=== PATIENT | female | born 1995 | race Caucasian/White ===

== ENCOUNTER 2022-10-12 15:22 | Outpatient (CLI) | payer BC, SELFPAY ==
[2022-10-12 21:41] LABS: Chlamydia DNA Amplified* NOT DETECTED (No Detected); GC DNA Amplified* NOT DETECTED (No Detected)
== END 2022-10-12 15:23 | disposition home or self-care (01) ==
PROVIDERS: PCP Family Medicine; Visit Provider Obstetrics & Gynecology
DX: N93.0 Postcoital and contact bleeding (principal); N91.1 Secondary amenorrhea; Z11.3 Encounter for screening for infections with a predominantly sexual mode of transmission; Z12.4 Encounter for screening for malignant neoplasm of cervix
CPT/HCPCS: 83001; 83498; 84146; 84270; 84402; 84403; 84443; 87491; 87591

== ENCOUNTER 2022-10-17 15:43 | Outpatient (CLI) | payer BC, SELFPAY ==
--- NOTE | 2022-10-17 16:00 | CRLHL7_ITS ---
For Patients: As a result of the Century Cures Act, medical imaging exams and procedure reports are released immediately into your electronic medical record. You may view this report before your referring provider. If you have questions, please contact your health care provider. INDICATION: POST COITAL BLEEDING COMPARISON: none TECHNIQUE: 2D hardy scale and color Doppler images were acquired of the pelvis using a transabdominal and transvaginal approach. FINDINGS: Sonographic images demonstrate a normal size and smooth outer contour of the uterus. Uterus measures 6.4 cm in length by 2.7 cm in AP diameter by 4.8 cm in transverse dimension. The myometrium has a normal uniform echotexture. The endometrial lining measures 5 mm in composite thickness. The endometrium is heterogeneous with small cystic areas. The right ovary measures 3.9 x 2.3 x 2.3 cm in size and the left ovary measures 3.8 x 1.7 x 2.2 cm. The ovaries demonstrate normal arterial and venous blood flow on color Doppler analysis. There are no suspicious fluid collections within the cul-de-sac. Multiple normal ovarian follicles are present bilaterally. IMPRESSION: Mild heterogeneity of the endometrium which measures 5 millimeters along with small cystic areas suggesting adenomyosis. Dictated by Enrico Hurt MD @ 10/18/2022 10:45:16 AM (Electronically Signed)
== END 2022-10-17 15:44 | disposition home or self-care (01) ==
LOC: US 15:43
PROVIDERS: PCP Family Medicine; Visit Provider Obstetrics & Gynecology
DX: N93.0 Postcoital and contact bleeding (principal); R93.89 Abnormal findings on diagnostic imaging of other specified body structures
CPT/HCPCS: 76830; 76856

== ENCOUNTER 2022-12-14 06:40 | Outpatient (CLI) | payer BC, SELFPAY ==
[2022-12-18 11:32] LABS: Progesterone, HPLC-MS/MS 0.64 ng/mL
== END 2022-12-14 06:41 | disposition home or self-care (01) ==
LOC: LAB 06:45
PROVIDERS: PCP Family Medicine; Visit Provider Obstetrics & Gynecology
DX: N91.1 Secondary amenorrhea
CPT/HCPCS: 36415; 80061; 82947; 84144

== ENCOUNTER 2023-01-07 20:36 | Outpatient (CLI) | payer SELFPAY ==
[2023-01-11 08:37] LABS: Progesterone, HPLC-MS/MS 0.15 ng/mL
== END 2023-01-07 20:37 | disposition home or self-care (01) ==
LOC: LAB 20:37
PROVIDERS: PCP Family Medicine; Visit Provider Obstetrics & Gynecology
DX: N97.0 Female infertility associated with anovulation (principal)
CPT/HCPCS: 36415; 84144

== ENCOUNTER 2023-02-27 08:10 | Outpatient (CLI) | payer SELFPAY | END 2023-02-27 08:11 | disposition home or self-care (01) | LOC: NFLDREF 03-06 08:07 | PROVIDERS: PCP Family Medicine; Referring Provider Family Medicine; Visit Provider Obstetrics & Gynecology | DX: N97.0 Female infertility associated with anovulation (principal) | CPT/HCPCS: 84144 ==

== ENCOUNTER 2023-06-21 13:39 | Outpatient (CLI) | payer BC, SELFPAY ==
--- NOTE | 2023-06-21 14:00 | CRLHL7_ITS ---
For Patients: As a result of the Cures Act, medical imaging exams and procedure reports are released immediately into your electronic medical record. You may view this report before your referring provider. If you have questions, please contact your health care provider. INDICATION: First trimester scan, establish dates. COMPARISON: None. TECHNIQUE: Real-time hardy-scale imaging of the pelvis was performed. FINDINGS: Sonographic imaging demonstrates a single living intrauterine gestation. The embryo demonstrates a regular cardiac rate measuring 152 beats per minute. The embryo`s crown-rump length measurement of 2.2 cm corresponds to a gestational age of 8 weeks 6 days with a sonographic due date of 01/25/2024. There is a normal-appearing yolk sac. There are no gross abnormalities noted within the embryo at this early state of development. The gestational sac has a normal appearance. There is no evidence of a perigestational hemorrhage. The amount of fluid within the sac appears appropriate for gestational age. The cervix is closed. The myometrium appears normal. The ovaries are of normal size. Corpus luteal cyst left ovary. There are no suspicious fluid collections noted in the cul-de-sac. IMPRESSION: Normal first trimester OB ultrasound exam. Gestational age calculated at 8 weeks 6 days with a sonographic due date of 01/25/2024. Dictated by Enrico Hurt MD @ 06/21/2023 2:39:18 PM (Electronically Signed)
== END 2023-06-21 13:40 | disposition home or self-care (01) ==
LOC: US 13:40
PROVIDERS: PCP Family Medicine; Visit Provider Advanced Practice Midwife
DX: Z34.91 Encounter for supervision of normal pregnancy, unspecified, first trimester (principal); Z3A.09 9 weeks gestation of pregnancy
CPT/HCPCS: 76817; 86592; 86703; 86704; 86706; 86762; 86787; 86803; 86850; 86900; 86901; 87086; 87340

== ENCOUNTER 2023-09-11 12:39 | Outpatient (CLI) | payer BC, SELFPAY ==
--- NOTE | 2023-09-11 13:00 | US_ITS ---
Patient: PATRICIA OBANDO Facility:?[facility] Patient ID:?[id number] Site Patient ID:?[id number]. Site :?[id number] Study:?US-OB Pelvis anatomy-09/11/2023 2:08:05 PM Ordering Physician:KYM Final Report: INDICATION: anatomy screen. Comparison: None. Technique: Transabdominal OB ultrasound; anatomic survey. Findings: Single viable intrauterine gestation of 21 weeks and 3 days duration with an expected date of delivery 01/19/2024. heart rate 154 beats per minute and regular. Estimated weight 392 g at 69th percentile. Placenta is posterior with accessory lobe anteriorly. No previa. The length of the uterine cervix 4.2 cm. position is vertex. The umbilical artery SD ratio 3.8. BPD 5.25 cm, head circumference 20.28 cm, abdominal circumference 15.45 cm, femur length 3.49 cm, cisterna magna 0.55 cm and lateral ventricle 0.52 cm. The largest amniotic fluid pocket measures 3.8 cm in depth. anatomy screen is normal. IMPRESSION: 1. Single viable intrauterine gestation of 21 weeks and 3 days duration with an expected date of delivery 01/19/2024. 2. heart rate 154 beats per minute and regular. 3. The estimated weight 392 g at 69th percentile. 4. Normal anatomy screen. Dictated by Kelechi Lama MD @ 09/12/2023 8:33:54 AM Signed by:?Kelechi Lama MD @09/12/2023 8:33:54 AM (Electronic Signature)
== END 2023-09-11 12:40 | disposition home or self-care (01) ==
PROVIDERS: PCP Family Medicine; Visit Provider Advanced Practice Midwife
DX: Z34.92 Encounter for supervision of normal pregnancy, unspecified, second trimester (principal); Z3A.21 21 weeks gestation of pregnancy
CPT/HCPCS: 76805

== ENCOUNTER 2023-11-05 08:45 | Outpatient (CLI) | payer BC, SELFPAY | END 2023-11-05 08:46 | disposition home or self-care (01) | LOC: NFLDREF 11-23 21:46 | PROVIDERS: PCP Family Medicine; Referring Provider Family Medicine; Visit Provider Advanced Practice Midwife | DX: Z34.93 Encounter for supervision of normal pregnancy, unspecified, third trimester (principal); Z3A.28 28 weeks gestation of pregnancy | CPT/HCPCS: 86592 ==

== ENCOUNTER 2023-11-20 13:53 | Outpatient (CLI) | payer BC, SELFPAY ==
--- NOTE | 2023-11-20 14:00 | CRLHL7_ITS ---
For Patients: As a result of the Century Cures Act, medical imaging exams and procedure reports are released immediately into your electronic medical record. You may view this report before your referring provider. If you have questions, please contact your health care provider. INDICATION: Third trimester scan, evaluate growth. COMPARISON: 09/11/2023 TECHNIQUE: Real time hardy scale imaging of the fetus was performed. FINDINGS: Sonographic imaging demonstrates a single living intrauterine gestation. Fetus demonstrates a regular cardiac rate of 125 beats per minute. Fetus has a vertex position. The placenta lies posterior with an accessory placenta anteriorly. Amniotic fluid volume appears normal and there is a single deepest vertical pocket: 6.0 cm. The estimated weight is 1811gm which lies at the 75th %. On the prior OB ultrasound exam dated 09/11/2023 the estimated weight was at the 69th%. BPD 94th percentile. HC< 97th percentile. AC is 70th percentile. FL 40th percentile. The HC/AC ratio measures 1.15 range (0.96-1.12). IMPRESSION: Sonographic gestational age 32 weeks 4 days and sonographic due date 01/11/2024. Sonographic age 2 weeks ahead of the clinical age. Estimated weight 75th percentile. Abdominal circumference 70th percentile. HC< 97th percentile. Accessory anterior placenta. Dictated by Enrico Hurt MD @ 11/21/2023 2:09:49 PM (Electronically Signed)
== END 2023-11-20 13:54 | disposition home or self-care (01) ==
LOC: US 13:54
PROVIDERS: PCP Family Medicine; Visit Provider Registered Nurse
DX: Z34.93 Encounter for supervision of normal pregnancy, unspecified, third trimester (principal); Z3A.32 32 weeks gestation of pregnancy
CPT/HCPCS: 76816

== ENCOUNTER 2023-12-30 09:26 | Outpatient (CLI) | payer BC, SELFPAY | END 2023-12-30 09:27 | disposition home or self-care (01) | LOC: NFLDREF 12-31 15:36 | PROVIDERS: PCP Family Medicine; Referring Provider Family Medicine; Visit Provider Advanced Practice Midwife | DX: Z34.93 Encounter for supervision of normal pregnancy, unspecified, third trimester (principal); Z3A.36 36 weeks gestation of pregnancy | CPT/HCPCS: 87081; 87653 ==

== ENCOUNTER 2024-01-13 18:30 | Inpatient (IN) | payer BC, SELFPAY ==
[2024-01-13] VITALS (7 sets, daily range): BP systolic 111–121; BP diastolic 68–71; PULSE 71–72; RESP 16; TEMP 36.7–36.9; O2SAT 97; BMI 33.1
--- NOTE | 2024-01-13 20:04 | P.LDBA_ITS ---
Subjective History of Present Illness Date Seen: 01/13/24 Narrative: Ivonne is being admitted to Labor and Delivery for SROM this morning around 0700. She is a 28 year old at 38.2 weeks gestation. Her full history and physical was dictated by Fransisco Nazario CNM on 01/06/24. Please see this for details. She has started to feel more regular tightening starting this evening around 1630, at this time she would like to wait and see if her body will continue to progress with cr. Discussed considering IV Pitocin if in 4 hours she is not continuing to contract regularly with increasing intensity. She would like to defer a cervical exam at this time until later. 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 ADD Was on Adderall prior to , not currently using 2. Hx of Laminectomy L5-S1 Anesthesia referral placed: Completed - 11/19 w/ Karlene: Asked about primary C/S rather than epidural if needed intrapartum, her concern is masking her pinched nerve with epidural where she may have pain/numbness/weakness after it wears off. Discussed risks of C/S, where it could be considered by maternal request but is NOT medically recommended. 3. Possible progesterone for menses initiation completed in very early 4. Accessory anterior lobe Consider growth US 28-32 weeks pending final report-no recommendation for follow up US on final report. [x] growth on 11/19 by tech report is 75%ile. Posterior placenta with anterior accessory lobe, no placenta near cervix - on pictures appears fundal. COVID: first series, not booster, declines booster today Flu: 04/05/2023 OB - Problem Based A/P Additional Plan (1) SROM (spontaneous rupture of membranes): Status: Acute (2) 38 weeks gestation of : Status: Acute Plan Assessment:?? at 38.2 weeks gestation?? GBS negative? Patient is coping well with challenges of labor.?? Labor type: Spontaneous, Early labor? Category 1 FHR pattern.? complicated by: 1. ADD Was on Adderall prior to , not currently using 2. Hx of Laminectomy L5-S1 Anesthesia referral placed: Completed - 11/19 w/ Karlene: Asked about primary C/S rather than epidural if needed intrapartum, her concern is masking her pinched nerve with epidural where she may have pain/numbness/weakness after it wears off. Discussed risks of C/S, where it could be considered by maternal request but is NOT medically recommended. 3. Possible progesterone for menses initiation completed in very early 4. Accessory anterior lobe Consider growth US 28-32 weeks pending final report-no recommendation for follow up US on final report. [x] growth on 11/19 by tech report is 75%ile. Posterior placenta with anterior accessory lobe, no placenta near cervix - on pictures appears fundal. Plan:?? * ?Admit to L & D? * IV access: NA * Monitoring per policy: intermittent? * Candidate for analgesia of choice.? Planning unmedicated waterbirth for pain management * Desires waterbirth.? Consent signed and Hep C negative * Expectant management at this time ? * Patient encouraged to reposition and ambulate to promote physiologic labor and . * Anticipate * Reevaluate in approximately 4 hours, consider augmentation at that time if not continuing to progress in labor? Delivery/Labor/Induction Plan Plan: expectant management OB Exam Physical Exam Vital signs: Temp Pulse Resp BP Pulse Ox 98.4 F 72 16 121/71 97 01/13/24 19:30 01/13/24 18:28 01/13/24 18:30 01/13/24 18:28 01/13/24 18:28 Narrative: Vitals Reviewed Constitutional:? Alert and oriented x3 HEENT:? Normocephalic, atraumatic Neck:? Supple Lungs:? Clear to auscultation bilaterally Heart:? Regular rate and rhythm, no murmur, rub or gallop Abdomen:? Soft, nontender, and gravid. Vertex by Edgardo's, confirmed with cervical exam. Extremities:? No edema or erythema Cervix: deferred at this time, vertex confirmed by bedside US NST: 125 bpm/moderate variability/+accelerations/-decelerations/mild contractions every 8-10 minutes on admission now reporting contractions are closer together but has not been timing them Detailed Labor and Delivery Exam Patient Gravid: Yes
[2024-01-13] MEDS: CALCIUM CARBONATE 500 MG CHEW PO (20:10)
[2024-01-14] VITALS (62 sets, daily range): BP systolic 100–143; BP diastolic 49–86; PULSE 65–145; RESP 16; TEMP 36.4–37; O2SAT 90–100
[2024-01-14] MEDS: miSOPROStoL 25 MCG/0.25 TABLET PO ×3 (00:16→08:23)
--- NOTE | 2024-01-14 00:30 | PM.OBPNL ---
Subjective Date Seen: 01/14/24 Narrative: ?Ivonne is sleeping though her contractions at this time. ?Chay is with her for support. ?Decision made to do cervical exam, done with consent. She is 1/thick/-3. Since admission she is contraction more regularly but they have not increased in intensity. Reviewed options of waiting longer or adding augmentation of either Pitocin or Cytotec at this time. She is agreeable to Cytotec orally. Encouraged to sleep as able overnight and offered medications for sleep if needed. She declines at this time. Objective Exam: VSS, afebrile General Appearance:? Calm, cooperative. ?No acute distress. ? Psychiatric Exam: Alert and oriented, appropriate affect Abdomen: Gravid Ctx: ?Q 2-5 min apart. ?Mild ? ? FHTs: ?Baseline: 125. ? ? Variability: moderate. ?Accels: +. ? ?Decels: ?-. SVE: 1/thick/-3 Membranes: ?SROM since 0700 Vital Signs: Last Vital Signs Temp 98.0 F 01/13/24 23:30 Pulse 83 01/14/24 00:20 Resp 16 01/13/24 18:30 BP 130/72 01/14/24 00:20 Pulse Ox 96 01/14/24 00:20 Plan Plan: Assessment:?? at 38.3 gestation?? GBS neg Patient is not in labor at this time.? Labor type: Augmentation , Early labor? Category 1 FHR pattern.? complicated by: ADD Hx of Laminectomy L5-S1 Anesthesia referral placed: Completed - 11/19 w/ Karlene: Asked about primary C/S rather than epidural if needed intrapartum, her concern is masking her pinched nerve with epidural where she may have pain/numbness/weakness after it wears off. Discussed risks of C/S, where it could be considered by maternal request but is NOT medically recommended. Possible progesterone for menses initiation completed in very early Accessory anterior lobe Consider growth US 28-32 weeks pending final report-no recommendation for follow up US on final report. [x] growth on 11/19 by tech report is 75%ile. Posterior placenta with anterior accessory lobe, no placenta near cervix - on pictures appears fundal. Labor complicated by: PROM Plan:?? Cytotec orally per protocol for augmentation. Limit vaginal exams Continue with routine intrapartum cares as ordered.?? Patient encouraged to move and change positions to promote physiologic labor and .?? Nonpharmacologic comfort measures per patient preference. Candidate for analgesia of choice if desired. Patient planning waterbirth Anticipate progress to NVD. ?
--- NOTE | 2024-01-14 07:31 | PM.OBPNL ---
Subjective Date Seen: 01/14/24 Narrative: Ivonne was able to sleep over night. She is feeling contractions as tightening but denies pain with them and was able to sleep through them. She is continuing to occasionally leak a small amount of clear fluid. VSS. We discussed limiting SVE to prevent infection and she is agreeable to this plan. Deferred exam at this time as she is not feeling painful contractions, she denies pressure, and it would not be likely to change our plan at this time. Discussed additional doses of Cytotec vs switching to Pitocin titration. She would like to proceed with 1-2 more doses of oral Cytotec before considering Pitocin. She is due for her next dose at 0815 so will plan to reevaluate around [id number] to decided on additional Cytotec doses vs Pitocin. She denies questions or concerns at this time. Objective Vital Signs: Last Vital Signs Temp 97.9 F 01/14/24 06:23 Pulse 68 01/14/24 04:05 Resp 16 01/13/24 18:30 BP 115/80 01/14/24 04:05 Pulse Ox 98 01/14/24 04:06 Contractions Monitor mode: External Contraction Frequency: On [place]. 1-3 with likely irritability, not feeling all that are tracing. Contraction pattern: Irregular Contraction intensity: Mild (per palpation by RN) Assessment Assessment: early labor Amniotic Membrane Status: SROM Status: Category l Heart Rate Baseline: 125 Automotive Vehicle Inspector Variability: Moderate (6-25) Monitor Accelerations: Present Monitor Decelerations: None Plan Plan: Assessment:?? at 38.3 gestation?? GBS neg Patient is not in labor at this time.? Labor type: Augmentation , Early labor?after SROM Category 1 FHR pattern.? complicated by: ADD, hx of Laminectomy L5-S1, accessory anterior lobe Labor complicated by: PROM Plan:?? Reviewed risks and benefits of augmentation with Pitocin vs Cytotec. Pt prefers to continue with Cytotec. Consider Pitocin after an additional 1-2 doses of Cytotec.? Limit vaginal exams Continue with routine intrapartum cares as ordered.?? Desires water . Consent signed. Hep C negative.? Candidate for analgesia of choice. Planning unmedicated . Nonpharmacologic comfort measures per patient preference.? Patient encouraged to move and change positions to promote physiologic labor and .?? Anticipate progress to NVD. Continuous monitoring per Cytotec policy
[2024-01-14 11:41] LABS: Basophils Absolute Auto 0.03 K/uL (0.00-0.30); Basophils Percent Auto 0.4 % (0.0-3.0); Eosinophils Absolute Auto 0.08 K/uL (0.00-0.50); Hematocrit 39.2 % (33.0-51.0); Hemoglobin* 12.9 gm/dL (12.0-16.0); Immature Granulocytes Abs Auto 0.05 K/uL (0.00-0.30); Immature Granulocytes Pct Auto 0.6 %; Lymphocytes Percent Auto 25.7 % (20-44); Mean Corpuscular HGB Conc 33 gm/dL (32-36); Mean Corpuscular Hemoglobin 31 pg (26-34); Mean Corpuscular Volume 93 fL (80-100); Monocytes Percent Auto 9.3 % (0.0-11.0); Neutrophils Absolute Auto 4.89 K/uL (1.7-7.0); Platelet Count* 182 K/uL (140-440); RDW Coefficient of Variation % 12.7 % (11.5-15.5); Red Blood Count 4.23 m/uL (4.00-5.20); White Blood Count* 7.77 K/uL (4.50-11.00)
[2024-01-14 11:44] LABS: Slide Review Reflex No
[2024-01-14] MEDS: OXYTOCIN 30 unit/500 ML in NS 30 UNIT/500 ML BAG IVPB (12:19)
[2024-01-14] MEDS: LACTATED RINGERS 1000 ML 1,000 ML 125 ML IV (19:56)
--- NOTE | 2024-01-14 21:20 | PM.OBPNL ---
Subjective Time Seen by Provider: 11:30 Date Seen: 01/14/24 Narrative: Ivonne is about 3 hours past her third dose of oral Cytotec. She is starting to feel cramping but mild and they palpate mild. We discussed options of continuing with Cytotec or switching to Pitocin titration. Risks and benefits of each were discussed. Offered a SVE but she declines at this time as she is only just started feeling cramping and it would be unlikely to change her options or influence her decision. She would like to switch to Pitocin titration. Objective Vital Signs: Last Vital Signs Temp 98.4 F 01/14/24 19:20 Pulse 67 01/14/24 20:25 Resp 16 01/14/24 18:13 BP 132/69 01/14/24 20:25 Pulse Ox 98 01/14/24 04:06 Contractions Monitor mode: External Contraction Frequency: 2-6 min Contraction pattern: Irregular Contraction intensity: Mild (per palpation by RN) Assessment Assessment: induction ongoing Amniotic Membrane Status: SROM Status: Category l Heart Rate Baseline: 120 Mechanical Handyman Variability: Moderate (6-25) Monitor Accelerations: Present Monitor Decelerations: Variable (one variable noted. did not repeat.) Plan Plan: Assessment:?? at 38.3 gestation?? GBS neg Labor type: Augmentation , Early labor?after SROM Category 1 FHR pattern.? complicated by: ADD, hx of Laminectomy L5-S1, accessory anterior lobe Labor complicated by: PROM Plan:?? Reviewed risks and benefits of continuing augmentation with Cytotec vs switching to Pitocin titration. Pt prefers to switch to Pitocin titration.? Limit vaginal exams Continue with routine intrapartum cares as ordered.?? Desires water . Consent signed. Hep C negative.? Candidate for analgesia of choice. Planning unmedicated . Nonpharmacologic comfort measures per patient preference.? Patient encouraged to move and change positions to promote physiologic labor and .?? Anticipate progress to NVD. Continuous monitoring per Pitocin policy
--- NOTE | 2024-01-14 21:29 | PM.OBPNL ---
Subjective Time Seen by Provider: 21:00 Date Seen: 01/14/24 Narrative: Ivonne has continued with Pitocin titration and was up to 14 mU/min. At my arrival she was cr every 1.5 minutes for the past 15-20 minutes so it was decreased to 7 mU/min. If contractions do not decrease in frequency will consider decreasing further. She stared having painful contractions around 1930 and the have increased in intensity. Requested a SVE after my arrival and was found to be 4-5/90%/-1. Encouraged her to continue with position changes. Discussed considering hydrotherapy or nitrous for comfort. Shortly after the SVE she requested an epidural. A SVE was again offered and she was found to 6cm but exam was difficult as she was in the bathroom bathtub. She would like to proceed with epidural placement. Objective Vital Signs: Last Vital Signs Temp 98.4 F 01/14/24 19:20 Pulse 67 01/14/24 20:25 Resp 16 01/14/24 18:13 BP 132/69 01/14/24 20:25 Pulse Ox 98 01/14/24 04:06 Pelvic Exam Dilation (cm): 6 Effacement (%): 90 Station: -1 Contractions Monitor mode: External Contraction Frequency: 2-2.5 min Contraction pattern: Irregular Contraction intensity: Mild (per palpation by RN) Pitocin Rate (mU/min): 7 Assessment Assessment: active labor Station: -1 Amniotic Membrane Status: SROM Status: Category l Heart Rate Baseline: 125 Monitor Accelerations: Present Monitor Decelerations: Variable (one variable noted. did not repeat.) Plan Plan: Assessment:?? at 38.3 gestation?? GBS neg Labor type: Augmentation , active labor?after SROM Category 1 FHR pattern.? complicated by: ADD, hx of Laminectomy L5-S1, accessory anterior lobe Labor complicated by: PROM Plan:?? Continue Pitocin titration per policy Limit vaginal exams Continue with routine cares.?? Candidate for analgesia of choice. Desires epidural placement at this time. Encouraged and assist with positions changes to promote physiologic labor and after epidural placement.?? Anticipate progress to NVD. Continuous monitoring per policy
[2024-01-14] MEDS: ONDANSETRON 2 MG/ML inj 4 MG IV (21:45)
[2024-01-14] MEDS: fentaNYL 250 MCG/5 ML inj 100 MCG EPIDURAL ×2 (21:55→22:55)
[2024-01-14] MEDS: ROPIVACAINE 0.2% 100 ml 100 ML 12 MG EPIDURAL (22:01)
[2024-01-14] MEDS: LIDOCAINE 2% (PF) 5 ML VIAL EPIDURAL (22:01)
--- NOTE | 2024-01-14 22:17 | P.ANBPRC_ITS ---
PFSH PFS Medical History (Updated 01/13/24 @ 20:13 by Juan Galarza CNM) Infertility associated with anovulation ?N97.0 - Female infertility associated with anovulation (ICD-10) Surgical History Status post lumbar laminectomy (04/2012) ?Z98.890 - Other specified postprocedural states (ICD-10) Family History (Updated 06/21/23 @ 15:00 by Ivonne Grajeda CNM) Paternal Grandfather Coronary artery disease Diabetes Mother High blood pressure Father High cholesterol Aunt Ovarian cancer Endometrial cancer Social History (Updated 06/22/23 @ 18:03 by Ivonne Grajeda CNM) Narrative: SOCIAL Education: Doctorate Work: [employer] 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 Partner present Special Diet: Denies Ok with a blood transfusion: yes Culture or presybeterian beliefs: denies RISK FACTORS Exercise Times/wk: Not routinely Hx of Depression and/or Anxiety/other mood disorder: No Seat Belt Use: Routinely Smoking: Denies past/present Alcohol/day: Denies while , Less than 1x per day/few per week Caffeine: 1 cup per day Drug Use: Denies past/present Chicken Pox: vaccinated, twice MRSA: Denies What is your current living situation?: I presently have a place to live Problems where you live: no known problems In the past 12 months, utilities in danger of being shut off: no In past 12 months, lack of transportation kept you from medical appts, meetings, work, or getting things needed for daily living: no How hard is it for you to pay for the very basics like food, housing, medical care, and heating: not very hard In the past 12 mos, have been you worried that your food would run out before you had money to buy more?: never true In the past 12 mos, the food you bought just didn't last and you didn't have money to buy more?: never true Smoking Status: Never smoker How often does anyone, including family, friends and others, physically hurt you : never How often does anyone, including family, friends and others, insult or talk down to you: never How often does anyone, including family, friends and others, threaten you with harm: never How often does anyone, including family, friends and others, scream or curse at you: never Little interest or pleasure in doing things: not at all Feeling down, depressed, or hopeless: not at all Meds Home Medications and Allergies Home Medications ?Medication ?Instructions ?Recorded ?Confirmed ?Type omega-3s 800 mg-dha 186.67 mg-epa 1 cap PO DAILY 10/12/22 01/13/24 History 560 mg-fish-vit D3 8.33 mcg capsule (De3 [facility] [place] Benefits) prenat.vits,kristopher,hbd-zmtg-kzcxx 1 tab PO QDAY 10/12/22 01/13/24 History famotidine 10 mg tablet (Acid 10 mg feeding tube QHS 01/13/24 01/13/24 History Controller) Allergies Allergy/AdvReac Type Severity Reaction Status Date / Time No Known Allergies Allergy Unknown Verified 01/13/24 18:44 Results Labs Labs: Laboratory Results - last 24 hr 01/14/24 11:30 WBC 7.77 RBC 4.23 Hgb 12.9 Hct 39.2 MCV 93 MCH 31 MCHC 33 RDW Coeff of Anjali 12.7 Plt Count 182 Neut % (Auto) 63.0 Lymph % (Auto) 25.7 [place]idan % (Auto) 9.3 Eos % (Auto) 1.0 Baso % (Auto) 0.4 Neut # (Auto) 4.89 Lymph # (Auto) 2.00 [place]idan # (Auto) 0.70 Eos # (Auto) 0.08 Baso # (Auto) 0.03 Abs Immat Gran (auto) 0.05 Imm/Tot Granulo (auto) 0.6 Blood Type O Positive Antibody Screen NEGATIVE Vital Signs Vital Signs: Last Vital Signs Temp 98.4 F 01/14/24 19:20 Pulse 70 01/14/24 22:17 Resp 16 01/14/24 18:13 BP 142/83 H 01/14/24 22:17 Pulse Ox 100 01/14/24 22:12 Weight: 93.1 kg Height: 167.64 cm Anesthesia Procedures Epidural Insertion Patient Location: OB Start Time: 21:15 Stop Time: 22:15 Start Date: 01/14/24 Stop Date: 01/14/24 Reason for Block: primary anesthetic Patient Position: sitting Performed By: Salomón Baird Preanesthetic Checklist: IV checked, risks and benefits discussed, surgical consent, monitors and equipment checked, pre-op evaluation, timeout performed and anesthesia consent Prep: chlorhexidine gluconate Monitoring: blood pressure monitoring, supervisor mold construction, continuous pulse oximetry and heart rate Approach: midline Vertebral Space: lumbar (1-5) Needle Type: Tuohy needle Injection Technique: continuous catheter Needle gauge: 17 Needle Length (cm): 10 cm Needle Insertion Depth (cm): 6 Catheter Gauge: 19 Catheter Type: multi-orifice Catheter at skin depth (cm): 12 Test Dose Result: negative and lidocaine 1.5% with epinephrine 1 to 200,000 Events: other
--- NOTE | 2024-01-14 23:06 | SUR.ANES ---
First epidural did not set up. Replaced STEF [id number]. chloraprep, sterile drape, gloves and technic. L3-4. Easy placement with pit turned down and better patient positioning. KATERINA 7-8 cm, threaded epidural catheter easily to 12 cm. Test dose negative. block set up within 5-7 min. Patient not feeling contractions.
--- NOTE | 2024-01-14 23:11 | SUR.ANES ---
First epidural block did not set up. Replaced STEF [id number]. chloraprep, sterile drape, gloves and technic. Better positioning, and pitocin turned down, able to sit and tolerate procedure. L3-4. Easy placement with loss of resistance at 7-8 cm, threaded catheter to 12 cm. Test dose negative. loaded with 2% Lido and 100 mcg fentanyl. Block set up in 5-7 min. Patient resting comfortably.
[2024-01-15] VITALS (53 sets, daily range): BP systolic 100–159; BP diastolic 11–105; PULSE 50–137; RESP 16–18; TEMP 36.6–37; O2SAT 96–98
[2024-01-15] MEDS: LACTATED RINGERS 1000 ML 1,000 ML 125 ML IV (03:45)
[2024-01-15] MEDS: ROPIVACAINE 0.2% 100 ml 100 ML 12 MG EPIDURAL (05:43)
--- NOTE | 2024-01-15 06:06 | PM.OBPNL ---
Subjective Date Seen: 01/14/24 Narrative: Ivonne was found to be complete and began pushing around 0540. Pushing effectively. Objective Vital Signs: Last Vital Signs Temp 98.6 F 01/15/24 04:20 Pulse 93 01/15/24 05:42 Resp 16 01/14/24 18:13 BP 143/105 H 01/15/24 05:42 Pulse Ox 96 01/15/24 04:16 Pelvic Exam Dilation (cm): 10 Effacement (%): 100 Station: +1 Contractions Monitor mode: External Contraction Frequency: 1.5-3 min Contraction pattern: Irregular Contraction intensity: Mild (per palpation by RN) Pitocin Rate (mU/min): 7 Assessment Station: -1 Amniotic Membrane Status: SROM Status: Category l Heart Rate Baseline: 125 Monitor Accelerations: Present Monitor Decelerations: Variable (one variable noted. did not repeat.) Plan Plan: Assessment:?? at 38.3 gestation?? GBS neg Labor type: Augmentation , active labor?after SROM Category 1 FHR pattern.? complicated by: ADD, hx of Laminectomy L5-S1, accessory anterior lobe Labor complicated by: PROM Plan:?? Continue Pitocin titration per policy Limit vaginal exams Continue with routine cares.?? Candidate for analgesia of choice. Desires epidural placement at this time. Encouraged and assist with positions changes to promote physiologic labor and after epidural placement.?? Anticipate progress to NVD. Continuous monitoring per policy
[2024-01-15 07:02] LABS: Hematocrit 41.7 % (33.0-51.0); Hemoglobin* 13.8 gm/dL (12.0-16.0); Mean Corpuscular HGB Conc 33 gm/dL (32-36); Mean Corpuscular Hemoglobin 31 pg (26-34); Mean Corpuscular Volume 93 fL (80-100); Platelet Count* 213 K/uL (140-440); White Blood Count* 14.14 K/uL (4.50-11.00)
[2024-01-15 07:05] LABS: Slide Review Reflex No
[2024-01-15 07:21] LABS: Creatinine* 0.9 mg/dL (0.5-1.5); Est. Creatinine Clearance* 87.12; Estimated Glomerular Filt Rate 89 ml/min
[2024-01-15 07:22] LABS: Total Protein Urine 16 mg/dL
[2024-01-15 07:22] LABS: Alanine Aminotransferase* 16 U/L (4-35); Aspartate Amino Transferase* 29 U/L (12-35); Blood Urea Nitrogen* 16 mg/dL (5-24)
[2024-01-15 07:23] LABS: Creatinine Urine 57.4 mg/dL; Protein Creatinine Ratio Urine 0.28 (0-0.19)
[2024-01-15] MEDS: LIDOCAINE 1 % PF 30 ML INJECTION (08:55)
--- NOTE | 2024-01-15 09:20 | W.PM.OBVAGDE ---
OB Procedure Vag Delivery Mother Details Mother Details: The patient is a 28 year-old, 1, now Para 1, admitted on 01/13/24 at 38w2d gestation for SROM. Vitals Reviewed : 1 Para: 1 Admission Date: 01/13/24 Additional Details Heart: heart tones during second stage were [] Delivery Details Delivery Date: 01/15/24 Delivery Time: 08:43 Route of delivery: Gender: Male Viability: Alive; Heart Rate Present Position at Delivery: OA Delivery Details: She progressed with augmentation of cytotec and pitocin. Prolonged SROM approximately 50.5 ours of clear fluid. She remained afebrile through out labor. Patient was complete at 0530 and pushing at 0536. The dense epidural made pushing difficult, but there was slow progress through out 2nd stage. of a viable male at 0843 in semi right lateral, sitting due to patient's lower back discomfort. Vertex delivered OA. One nuchal cord and left compound hand that baby was delivered through without complication. Body delivered easily and without incident. passed to mothers abdomen for stimulation. Placenta showed signs of seperation so the cord was clamped and maternal efforts birthed the placenta without complication. Cord was clamped at approximately 4 minutes. APGARS were 8 at one minute and 8 at five minutes respectively. Mouth was bulb suctioned. Intact placenta with a 3 vessel cord delivered spontaneously at 0847. Bi-lobed placenta with marginal cord insertion noted. Fundus firm. Vaginal left side button hole noted and not hemostatic. figure of 8 with 3-0 vicryl under 1% lidocaine placed. Bilateral periurethral lacs hemostatic and not repaired. 1st degree perineal isolated mid body of perineum hemostatic and not repaired. QBL 350 cc. Mother and baby stable; mother plans to breastfeed. weight pending.? 1 Minute Interval Total Score: 8 5 Minute Interval Total Score: 8 Additional Details Shoulder Dystocia: No Placenta Delivery Time: 08:47 Placental Delivery Description: Spontaneous Delivery repair: Vicryl (3-0) Procedure Done: Global Blood Loss: 350 Laceration: Vaginal - 2nd Degree (Repaired. Bilateral periurethral and isolated midbody perineal 1st degree all hemostatic and not repaired.) Episiotomy Description: None Blood Loss Measurement Type: QBL Bakri Used: No Sponge/Need Count Correct: Yes Cord Vessel Description: 3 Vessels (with left compound hand), Nuchal Cord and Delivered through Event Summary Status: Mother and were stable after delivery. routine care Disposition: floor
[2024-01-15] MEDS: IBUPROFEN 600 MG TABLET PO ×3 (10:48→22:21)
[2024-01-15] MEDS: ACETAMINOPHEN 500 MG TABLET 1000 MG PO (13:36)
[2024-01-15 18:04] LABS: Rapid Plasma Reagin (RPR) Non Reactive (Non Reactive)
[2024-01-16 01:24] VITALS: BP 116/79; PULSE 58; RESP 14; TEMP 36.6
[2024-01-16 04:37] VITALS: BP 126/83; PULSE 58; RESP 16; TEMP 36.7
[2024-01-16] MEDS: IBUPROFEN 600 MG TABLET PO ×2 (04:42→11:28)
[2024-01-16 06:44] LABS: Hemoglobin* 11.3 gm/dL (12.0-16.0)
--- NOTE | 2024-01-16 07:57 | PM.ANPOST ---
Post Anesthesia Note Post Anesthesia Note Patient seen: Inpatient Respiratory Status: adequate Cardiovascular Status: adequate Mental Status: baseline Pain: adequate Temp: baseline Anesthetic awareness: N/A Complications: none Follow care: none
[2024-01-16 10:00] VITALS: BP 108/72; PULSE 71; RESP 16; TEMP 37.1; O2SAT 96
--- NOTE | 2024-01-16 10:33 | P.DS_ITS ---
DS: Providers Provider Time Seen by Provider: 08:00 Date Seen: 01/16/24 Date of admission: 01/13/24 18:30 Primary care physician: Shun Coates MD Admitting Clinician: Juan Galarza CNM Attending Physician on discharge: Juan Galarza CNM Date of Discharge: 01/16/24 DS: Diagnosis Discharge Diagnosis (1) care and examination immediately after delivery: Status: Acute (2) Lactating mother: Status: Acute Exam Narrative: Exam Narrative: VSS, afebrile GENERAL APPEARANCE: ?normal affect, alert, no distress MOOD: ?appropriate HEENT: normocephalic, neck supple, full ROM CHEST: ?Symmetrical chest wall movement. ?Normal respiratory effort. ?Clear to auscultation HEART: ?regular rate and rhythm ABDOMEN: ?soft, non-tender. Uterine fundus is firm, at Umbilicus, Midline and is appropriate for the stage of recovery. ?Bowel sounds present. PERINEUM: ?mild edema of the perineum, there is a 2nd degree laceration that is healing well. EXTREMITIES: ?normal and no edema Const: Vital Signs, click to edit/add: Vital Signs - 24 hr 01/15/24 10:37 01/15/24 10:37 01/15/24 10:52 Temperature Pulse Rate 53 L 52 L Pulse Rate [Left P ulse Oximeter] Respiratory Rate 16 Blood Pressure 120/71 159/79 H Blood Pressure [Ri ght Arm] Pulse Oximetry Oxygen Delivery Me thod 01/15/24 10:52 01/15/24 12:53 01/15/24 16:17 Temperature 98.1 F Pulse Rate Pulse Rate [Left P ulse Oximeter] 50 L 62 Respiratory Rate 16 17 18 Blood Pressure Blood Pressure [Ri ght Arm] 137/87 133/87 Pulse Oximetry 98 96 Oxygen Delivery Me thod Room Air Room Air 01/15/24 20:29 01/16/24 01:24 01/16/24 04:37 Temperature 97.9 F 98 F 98.1 F Pulse Rate Pulse Rate [Left P ulse Oximeter] 58 L 58 L 58 L Respiratory Rate 18 14 16 Blood Pressure Blood Pressure [Ri ght Arm] 108/70 116/79 126/83 Pulse Oximetry Oxygen Delivery Me thod Room Air Room Air Documenting provider has reviewed patient's vital signs: yes OB - DS: Summary Hospital Course Hospital Course: Ivonne is a 28 y.o. who was admitted to [facility] for SROM. ?She had an uncomplicated NVD.?The patient feels well. ?The pain is well controlled with current medications. ?She has no new complaints. ?She is breast feeding and reports things are going well, she had a visit with lacatation this morning. ? the patient has done well.? Vitals have been stable.? She has remained afebrile.? Has a good appetite, is tolerating a general diet. ?She is voiding without difficulty.? She is passing gas and has not had a bowel movement.? She is ambulating and denies any dizziness.? Has Small amount of rubra lochia. ?She is planning condoms for prevention. She had some elevated blood pressures during labor > 4hr apart but it was felt these were a result of taking her blood pressure during a contraction. Was not diagnosed with hypertension at this time. Peripartum Data Infant delivery method: Vaginal Laceration description: Perineal - 2nd Degree complications: none Gender: Male Discharge Plan: Home Status at Discharge Functional status at discharge: independent ambulation Overall status at discharge: patient is progressing back to baseline Time Spent with Patient Time attestation: Total time spent providing and/or coordinating discharge services: Time spent: Less than 30 minutes Discharge Plan Discharge Disposition: Home, Self-Care Date of Admission: 01/13/24 18:30 Attending Provider on Discharge: Juan Galarza Primary Care Provider: Shun Coates Condition: Stable Anticipated Discharge Date/Time: 01/16/24 12:00 Discharge Medications: New acetaminophen 500 mg Tablet 1,000 mg PO Q6H PRNQty: 0 0RF docusate sodium 100 mg Capsule 100 mg PO DAILY Qty: 90 2RF ibuprofen 600 mg Tablet 600 mg PO Q6H PRNQty: 60 0RF Continued prenat.vits,kristopher,[id number] Tablet 1 tab PO QDAY De3 Dry Eye [place] Benefits 800 mg-186.67 mg-8.33 mcg capsule 1 cap PO DAILY famotidine [Acid Controller] 10 mg tablet 10 mg feeding tube QHS Discharge Orders: Discharge Order (Routine); Ordered 01/16/24 Ordered By: Senja A Ruuska Patient Education: OB Over the Counter Medication Information, OB Vaginal/Breast Feeding Additional Instructions: Discharge instructions were reviewed with the patient including signs and symptoms of infection and home going medications Nothing vaginally for 6 weeks: no tampons or intercourse Off Work or School for 6 weeks 2-week visit: discuss infant feeding concerns, review control options and screen for anxiety/depression. 6-week visit for an annual exam. consultation services are available to all mothers and babies for the first year after delivery.? To make an appointment, please call [phone]. Activity Level: Activity as Tolerated Discharge Diet: Regular Follow Up Appointments: Shun Coates MD [Primary Care Provider] - [facility] [Provider Group] Forms: [employer] Info Instructions
[2024-01-16] MEDS: DOCUSATE SODIUM 100 MG CAPSULE PO (11:28)
== END 2024-01-16 11:50 | disposition home or self-care (01) | DRG 560 ==
LOC: OB OUT 01-14 06:14 → OB 01-15 09:11
PROVIDERS: Advanced Practice Midwife; Midwife; Admitting Provider Advanced Practice Midwife; PCP Family Medicine; Visit Provider Advanced Practice Midwife
DX: O42.12 Full-term premature rupture of membranes, onset of labor more than 24 hours following rupture (principal); O43.193 Other malformation of placenta, third trimester; F98.8 Other specified behavioral and emotional disorders with onset usually occurring in childhood and adolescence; O70.1 Second degree perineal laceration during delivery; R03.0 Elevated blood-pressure reading, without diagnosis of hypertension; Z3A.38 38 weeks gestation of pregnancy; Z37.0 Single live birth
CPT/HCPCS: 01967; 36415; 59200; 76815; 82565; 82570; 84156; 84450; 84460; 84520; 85018; 85025; 85027; 86592; 86850; 86900; 86901; G0463; A9270; J2001; J2371; J2405; J2795; J3010; J7120